=== PATIENT | male | born 1940 | race African-American/Black ===

== ENCOUNTER 2018-03-17 00:07 | Emergency (ER) | payer MEDICARE ==
[~2018-03-17] VITALS: Ht 175.3 cm; Wt 106.6 kg
[~2018-03-17 00:07] MED LIST: ASPI325T8 PO; ATOR40TA59 PO; CARV3.1210 PO; CLOP75TA PO; CYCL10TA2 PO; HYDR-3164 PO; LISI-334 PO; LISI10TA2 PO; NITR0.4T SL; SULF1TAB24 PO
--- NOTE | 2018-03-17 02:07 | PHYS DOC ---
Past Medical History Past Medical History: Hypertension, [place] Additional Past Medical Histor: denies medical history Past Surgical History: Other Additional Past Surgical Histo: R knee scope Alcohol Use: None Drug Use: None Adult General Chief Complaint Chief Complaint: ABDOMINAL PAIN HPI HPI Patient is a 77 year old male who presents with upper abdominal pain and vomiting. This started approximately 1999. Patient describes the pain is achy and crampy. Subjective fever at home. No flu vaccine this year. No trauma. No blood in the emesis. Patient reports that he is feeling a little bit better over time since arriving in the emergency department. Denzer mild to moderate in intensity at this point. [] Review of Systems Review of Systems Constitutional: Denies fever or chills [] Eyes: Denies change in visual acuity, redness, or eye pain [] HENT: Denies nasal congestion or sore throat [] Respiratory: Denies cough or shortness of breath [] Cardiovascular: Chest pain or palpitations[] GI: See history of present illness[] : Denies dysuria or hematuria [] Musculoskeletal: Denies back pain or joint pain [] Integument: Denies rash or skin lesions [] Neurologic: Denies headache, focal weakness or sensory changes [] Endocrine: Denies polyuria or polydipsia [] All other systems were reviewed and found to be within normal limits, except as documented in this note. Current Medications Current Medications Current Medications Medications (Trade) Dose Ordered Sig/Cassius Start Time Stop Time Status Last Admin Dose Admin Hyoscyamine (Anaspaz) 0.125 mg ONCE ONCE 03/17/18 02:30 03/17/18 02:31 DC 03/17/18 03:10 0.125 MG Ondansetron HCl (Zofran) 4 mg 1X ONCE 03/17/18 02:30 03/17/18 02:31 DC 03/17/18 02:24 4 MG Sodium Chloride 1,000 ml @ 1,000 mls/hr 1X ONCE 03/17/18 02:30 03/17/18 03:29 DC 03/17/18 02:25 1,000 MLS/HR Allergies Allergies Allergies Coded Allergies Type Severity Reaction Last Updated Verified No Known Drug Allergies 01/23/16 No Physical Exam Physical Exam Constitutional: Well developed, well nourished, no acute distress, non-toxic appearance. [] HENT: Normocephalic, atraumatic, bilateral external ears normal, oropharynx moist, no oral exudates, nose normal. [] Eyes: PERRLA, EOMI, conjunctiva normal, no discharge. [] Neck: Normal range of motion, no tenderness, supple, no stridor. [] Cardiovascular:Heart rate regular rhythm, no murmur [] Lungs & Thorax: Bilateral breath sounds clear to auscultation [] Abdomen: Bowel sounds normal, soft, mild tenderness in the upper abdomen, sits up without any difficulty, no rebound, no guarding, no rigidity, no masses, no pulsatile masses. [] Skin: Warm, dry, no erythema, no rash. [] Back: No tenderness, no CVA tenderness. [] Extremities: No tenderness, no cyanosis, no clubbing, ROM intact, no edema. [] Neurologic: Alert and oriented X 3, normal motor function, normal sensory function, no focal deficits noted. [] Psychologic: Affect normal, judgement normal, mood normal. [] Current Patient Data Vital Signs Vital Signs Date Time Temp Pulse Resp B/P (MAP) Pulse Ox O2 Delivery O2 Flow Rate FiO2 03/17/18 03:30 74 133/65 (87) 03/17/18 02:30 20 Room Air 03/17/18 00:59 100.2 98 100.2 Lab Values Laboratory Tests Test 03/17/18 02:14 03/17/18 04:08 White Blood Count 9.2 x10^3/uL (4.0-11.0) Red Blood Count 4.55 x10^6/uL (4.30-5.70) Hemoglobin 13.8 g/dL (13.0-17.5) Hematocrit 39.9 % (39.0-53.0) Mean Corpuscular Volume 88 fL (79-100) Mean Corpuscular Hemoglobin 30 pg (25-35) Mean Corpuscular Hemoglobin Concent 35 g/dL (31-37) Red Cell Distribution Width 14.2 % (11.5-14.5) Platelet Count 151 x10^3/uL (140-400) Neutrophils (%) (Auto) 94 % (31-73) H Lymphocytes (%) (Auto) 2 % (24-48) L Monocytes (%) (Auto) 3 % (0-9) Eosinophils (%) (Auto) 0 % (0-3) Basophils (%) (Auto) 0 % (0-3) Neutrophils # (Auto) 8.7 x10^3uL (1.8-7.7) H Lymphocytes # (Auto) 0.2 x10^3/uL (1.0-4.8) L Monocytes # (Auto) 0.3 x10^3/uL (0.0-1.1) Eosinophils # (Auto) 0.0 x10^3/uL (0.0-0.7) Basophils # (Auto) 0.0 x10^3/uL (0.0-0.2) Platelet Estimate Pending Sodium Level 141 mmol/L (136-145) Potassium Level 4.8 mmol/L (3.5-5.1) Chloride Level 103 mmol/L (98-107) Carbon Dioxide Level 24 mmol/L (21-32) Anion Gap 14 (6-14) Blood Urea Nitrogen 19 mg/dL (8-26) Creatinine 1.3 mg/dL (0.7-1.3) Estimated GFR (Cockcroft-Gault) 64.6 BUN/Creatinine Ratio 15 (6-20) Glucose Level 172 mg/dL (70-99) H Calcium Level 9.0 mg/dL (8.5-10.1) Magnesium Level 1.9 mg/dL (1.8-2.4) Total Bilirubin 1.0 mg/dL (0.2-1.0) Aspartate Amino Transferase (AST) 19 U/L (15-37) Alanine Aminotransferase (ALT) 21 U/L (16-63) Alkaline Phosphatase 79 U/L (46-116) Total Protein 8.1 g/dL (6.4-8.2) Albumin 4.3 g/dL (3.4-5.0) Albumin/Globulin Ratio 1.1 (1.0-1.7) Lipase 56 U/L (73-393) L Influenza Type A Antigen Negative (NEGATIVE) Influenza Type B Antigen Negative (NEGATIVE) Urine Collection Type Unknown Urine Color Yellow Urine Clarity Clear Urine pH 5.0 Urine Specific [place] 1.015 Urine Protein Negative mg/dL (NEG-TRACE) Urine Glucose (UA) Negative mg/dL (NEG) Urine Ketones (Stick) Negative mg/dL (NEG) Urine Blood Negative (NEG) Urine Nitrite Negative (NEG) Urine Bilirubin Negative (NEG) Urine Urobilinogen Dipstick 0.2 mg/dL (0.2 mg/dL) Urine Leukocyte Esterase Negative (NEG) Urine RBC 0 /HPF (0-2) Urine WBC 1-4 /HPF (0-4) Urine Squamous Epithelial Cells Occ /LPF Urine Bacteria 0 /HPF (0-FEW) Urine Mucus Mod /LPF Urine Trichomonas Present Laboratory Tests 03/17/18 02:14 Laboratory Tests 03/17/18 02:14 EKG EKG [] Radiology/Procedures Radiology/Procedures [] Course & Med Decision Making Course & Med Decision Making Pertinent Labs and Imaging studies reviewed. (See chart for details) ED course: Patient arrived, was placed in bed, tolerated exam well. Patient was feeling better with IV fluids and antiemetics. He was able to provide a urine sample late in his emergency department stay. After the return of the laboratory findings, these were discussed with him, all questions were answered. Patient was discharged in improved condition. Medical decision making: There is no evidence of obstruction, no evidence of by mouth intolerance. No evidence of significant electrolyte abnormality[] Dragon Disclaimer Dragon Disclaimer This electronic medical record was generated, in whole or in part, using a voice recognition dictation system. Departure Departure Impression: Primary Impression: Nausea and vomiting Additional Impression: Trichomoniasis Disposition: 01 HOME, SELF-CARE Condition: GOOD Referrals: NKECHI SANDOVAL MD (PCP) Follow-up in 2 days Patient Instructions: Nausea and Vomiting, Trichomoniasis Additional Instructions: Drink plenty of fluids, frequent small sips. No fatty foods, no milk, and no pepper for the next 48 hours. For the next 48 hours eat a diet rich in carbohydrates with foods such as bananas, rice, applesauce, and toast. Follow- up with your regular doctor in 2 days. Return to the ER if unable to tolerate liquids or any other concerns. Scripts Metronidazole (FLAGYL) 500 Mg Tablet 2000 MG PO ONCE, #4 TAB Prov: ROSALINDA SALCEDO DO 03/17/18 Ondansetron Hcl (ZOFRAN) 4 Mg Tablet 4 MG PO PRN TID PRN for NAUSEA/VOMITING, #15 nausea/vomiting Prov: ROSALINDA SALCEDO DO 03/17/18 Problem Qualifiers Primary Impression: Nausea and vomiting Vomiting type: unspecified Vomiting Intractability: unspecified Qualified Codes: R11.2 - Nausea with vomiting, unspecified ROSALINDA SALCEDO DO Mar 17, 2018 02:07
[2018-03-17 02:24] LABS: BASO % 0 % (0-3); EOS % 0 % (0-3); HEMATOCRIT 39.9 % (39.0-53.0); HEMOGLOBIN 13.8 g/dL (13.0-17.5); LYMPH # 0.2 x10^3/uL (1.0-4.8); LYMPH % 2 % (24-48); MEAN CORPUSCULAR HEMOGLOBIN 30 pg (25-35); MEAN CORPUSCULAR HGB CONC 35 g/dL (31-37); MEAN CORPUSCULAR VOLUME 88 fL (79-100); MONO # 0.3 x10^3/uL (0.0-1.1); MONO % 3 % (0-9); NEUT # 8.7 x10^3uL (1.8-7.7); NEUT % 94 % (31-73); PLATELET COUNT 151 x10^3/uL (140-400); RED BLOOD COUNT 4.55 x10^6/uL (4.30-5.70); RED CELL DISTRIBUTION WIDTH 14.2 % (11.5-14.5); WHITE BLOOD COUNT 9.2 x10^3/uL (4.0-11.0)
[2018-03-17] MEDS ORDERED: IV NORMAL SALINE 1000ML BAG 1,000 ML IV ONE (02:30)
[2018-03-17] MEDS ORDERED: HYOSCYAMINE 0.125 MG TAB.RAPDIS PO ONE (02:30)
[2018-03-17] MEDS ORDERED: ONDANSETRON PF 4 MG/2 ML VIAL. IV ONE (02:30)
[2018-03-17 02:32] LABS: CREATININE 1.3 mg/dL (0.7-1.3); GFR 64.6; POTASSIUM 4.8 mmol/L (3.5-5.1)
[2018-03-17 02:38] LABS: ALBUMIN 4.3 g/dL (3.4-5.0); ALBUMIN/GLOBULIN RATIO 1.1 (1.0-1.7); MAGNESIUM 1.9 mg/dL (1.8-2.4); TOTAL PROTEIN 8.1 g/dL (6.4-8.2)
[2018-03-17 02:39] LABS: INFLUENZA A PATIENT NEGATIVE (NEGATIVE); INFLUENZA B PATIENT NEGATIVE (NEGATIVE)
[2018-03-17 04:32] LABS: BILIRUBIN,URINE NEGATIVE (NEG); CLARITY,URINE CLEAR; COLOR,URINE YELLOW; NITRITE,URINE NEGATIVE (NEG); PROTEIN,URINE NEGATIVE (NEG-TRACE); UROBILINOGEN,URINE 0.2 mg/dL (0.2 mg/dL)
[2018-03-17 04:45] LABS: BACTERIA,URINE 0 /HPF (0-FEW); RBC,URINE 0 /HPF (0-2); SQUAMOUS EPITHELIAL CELL,UR OCC /LPF; TRICHOMONAS,URINE PRESENT
[2018-03-17] MEDS ORDERED: ONDA4TAB7 PO (04:53)
[2018-03-17] MEDS ORDERED: METR500T PO (04:53)
[2018-03-17 05:03] VITALS: BP 108/57
[2018-03-17 06:29] LABS: % LYMPHS 4 % (24-48); % MONOS 3 % (0-10); % SEGS 93 % (35-66)
[2018-03-17 06:33] LABS: OVALOCYTES OCC; PLT ESTIMATE ADEQUATE (ADEQUATE)
== END 2018-03-17 05:12 | disposition home or self-care (01) ==
LOC: ER 00:07
DX: R11.2 Nausea with vomiting, unspecified (principal); A59.9 Trichomoniasis, unspecified; R10.10 Upper abdominal pain, unspecified; I10 Essential (primary) hypertension; I25.2 Old myocardial infarction
CPT/HCPCS: 36415; 80053; 81001; 83690; 83735; 85007; 85025; 87804; 96361; 96374; 99283; J2405; J7030

== ENCOUNTER 2018-07-04 12:10 | Emergency (ER) | payer MEDICARE ==
[~2018-07-04] VITALS: Ht 175.3 cm; Wt 105.2 kg
[~2018-07-04 12:10] MED LIST changes: +METR500T PO; +ONDA4TAB7 PO
[2018-07-04] MEDS ORDERED: IV NORMAL SALINE 1000ML BAG 1,000 ML IV SCH (12:24)
[2018-07-04 12:39] LABS: BASO % 1 % (0-3); EOS # 0.1 x10^3/uL (0.0-0.7); EOS % 2 % (0-3); HEMATOCRIT 41.5 % (39.0-53.0); HEMOGLOBIN 13.7 g/dL (13.0-17.5); LYMPH % 19 % (24-48); MEAN CORPUSCULAR HEMOGLOBIN 29 pg (25-35); MEAN CORPUSCULAR HGB CONC 33 g/dL (31-37); MEAN CORPUSCULAR VOLUME 88 fL (79-100); MONO # 0.6 x10^3/uL (0.0-1.1); MONO % 12 % (0-9); NEUT # 3.3 x10^3uL (1.8-7.7); NEUT % 67 % (31-73); PLATELET COUNT 163 x10^3/uL (140-400); RED BLOOD COUNT 4.72 x10^6/uL (4.30-5.70); RED CELL DISTRIBUTION WIDTH 14.8 % (11.5-14.5)
--- NOTE | 2018-07-04 12:39 | PHYS DOC ---
Past Medical History Past Medical History: No Pertinent History, Hypertension, [place] Additional Past Medical Histor: denies medical history Past Surgical History: Other Additional Past Surgical Histo: R knee scope Additional Information: Denies smoking Alcohol Use: None Drug Use: None Adult General Chief Complaint Chief Complaint: DIARRHEA HPI HPI Patient is a 78 year old male who presents with complaining of diarrhea. Patient complaining of frequent episodes of nonbloody diarrhea for the last 3 days and states she had more than 10-20 episodes of diarrhea and was not able to sleep last night because of diarrhea. Patient states he was not able to eat solid food and tried to drink plenty of liquids. Patient denies sick contact, food poisoning, abdominal pain, urinary symptoms, nausea and vomiting, fever and chills, history of diarrhea or constipation, history of recent antibiotic use. Review of Systems Review of Systems Constitutional: Denies fever or chills [] Eyes: Denies change in visual acuity, redness, or eye pain [] HENT: Denies nasal congestion or sore throat [] Respiratory: Denies cough or shortness of breath [] Cardiovascular: No additional information not addressed in HPI [] GI: Denies abdominal pain, nausea, vomiting, bloody stools, reports diarrhea [] : Denies dysuria or hematuria [] Musculoskeletal: Denies back pain or joint pain [] Integument: Denies rash or skin lesions [] Neurologic: Denies headache, focal weakness or sensory changes [] Endocrine: Denies polyuria or polydipsia [] All other systems were reviewed and found to be within normal limits, except as documented in this note. Current Medications Current Medications Current Medications Medications (Trade) Dose Ordered Sig/Cassius Start Time Stop Time Status Last Admin Dose Admin Info (CONTRAST GIVEN -- Rx MONITORING) 1 each PRN DAILY PRN 07/04/18 13:15 07/06/18 13:14 Iohexol (Omnipaque 300 Mg/ml) 75 ml 1X ONCE 07/04/18 13:15 07/04/18 13:16 DC 07/04/18 13:16 75 ML Loperamide HCl (Imodium) 4 mg 1X STAT 07/04/18 14:32 07/04/18 14:33 DC 07/04/18 14:40 4 MG Sodium Chloride 1,000 ml @ 1,000 mls/hr Q1H 07/04/18 12:24 07/04/18 13:23 DC 07/04/18 12:30 1,000 MLS/HR Allergies Allergies Allergies Coded Allergies Type Severity Reaction Last Updated Verified No Known Drug Allergies 01/23/16 No Physical Exam Physical Exam Constitutional: Well developed, well nourished, no acute distress, non-toxic appearance. [] HENT: Normocephalic, atraumatic, oropharynx dry. Eyes: PERRLA, EOMI, conjunctiva normal, no discharge. [] Neck: Normal range of motion, no tenderness, supple, no stridor. [] Cardiovascular:Heart rate regular rhythm, no murmur [] Lungs & Thorax: Bilateral breath sounds clear to auscultation [] Abdomen: Bowel sounds normal, soft, no tenderness, no masses, no pulsatile masses. [] Skin: Warm, dry, no erythema, no rash. [] Back: No tenderness, no CVA tenderness. [] Extremities: No tenderness, no cyanosis, no clubbing, ROM intact, no edema. [] Neurologic: Alert and oriented X 3, normal motor function, normal sensory function, no focal deficits noted. [] Psychologic: Affect normal, judgement normal, mood normal. [] Current Patient Data Vital Signs Vital Signs Date Time Temp Pulse Resp B/P (MAP) Pulse Ox O2 Delivery O2 Flow Rate FiO2 07/04/18 12:15 97.7 75 18 141/78 (99) 98 97.7 Lab Values Laboratory Tests Test 07/04/18 12:30 07/04/18 13:45 White Blood Count 5.0 x10^3/uL (4.0-11.0) Red Blood Count 4.72 x10^6/uL (4.30-5.70) Hemoglobin 13.7 g/dL (13.0-17.5) Hematocrit 41.5 % (39.0-53.0) Mean Corpuscular Volume 88 fL (79-100) Mean Corpuscular Hemoglobin 29 pg (25-35) Mean Corpuscular Hemoglobin Concent 33 g/dL (31-37) Red Cell Distribution Width 14.8 % (11.5-14.5) H Platelet Count 163 x10^3/uL (140-400) Neutrophils (%) (Auto) 67 % (31-73) Lymphocytes (%) (Auto) 19 % (24-48) L Monocytes (%) (Auto) 12 % (0-9) H Eosinophils (%) (Auto) 2 % (0-3) Basophils (%) (Auto) 1 % (0-3) Neutrophils # (Auto) 3.3 x10^3uL (1.8-7.7) Lymphocytes # (Auto) 1.0 x10^3/uL (1.0-4.8) Monocytes # (Auto) 0.6 x10^3/uL (0.0-1.1) Eosinophils # (Auto) 0.1 x10^3/uL (0.0-0.7) Basophils # (Auto) 0.0 x10^3/uL (0.0-0.2) Sodium Level 138 mmol/L (136-145) Potassium Level 3.7 mmol/L (3.5-5.1) Chloride Level 101 mmol/L (98-107) Carbon Dioxide Level 20 mmol/L (21-32) L Anion Gap 17 (6-14) H Blood Urea Nitrogen 19 mg/dL (8-26) Creatinine 1.2 mg/dL (0.7-1.3) Estimated GFR (Cockcroft-Gault) 70.7 BUN/Creatinine Ratio 16 (6-20) Glucose Level 96 mg/dL (70-99) Lactic Acid Level 1.1 mmol/L (0.4-2.0) Calcium Level 8.5 mg/dL (8.5-10.1) Total Bilirubin 0.9 mg/dL (0.2-1.0) Aspartate Amino Transferase (AST) 36 U/L (15-37) Alanine Aminotransferase (ALT) 28 U/L (16-63) Alkaline Phosphatase 90 U/L (46-116) Total Protein 8.3 g/dL (6.4-8.2) H Albumin 4.2 g/dL (3.4-5.0) Albumin/Globulin Ratio 1.0 (1.0-1.7) Lipase 71 U/L (73-393) L Urine Collection Type Unknown Urine Color Yellow Urine Clarity Clear Urine pH 5.5 Urine Specific [place] 1.025 Urine Protein Negative mg/dL (NEG-TRACE) Urine Glucose (UA) Negative mg/dL (NEG) Urine Ketones (Stick) Negative mg/dL (NEG) Urine Blood Negative (NEG) Urine Nitrite Negative (NEG) Urine Bilirubin Negative (NEG) Urine Urobilinogen Dipstick 0.2 mg/dL (0.2 mg/dL) Urine Leukocyte Esterase Negative (NEG) Urine RBC 0 /HPF (0-2) Urine WBC 0 /HPF (0-4) Urine Squamous Epithelial Cells Few /LPF Urine Bacteria 0 /HPF (0-FEW) Urine Hyaline Casts Few /HPF Urine Mucus Slight /LPF Laboratory Tests 07/04/18 12:30 Laboratory Tests 07/04/18 12:30 EKG EKG [] Radiology/Procedures Radiology/Procedures [facility] [address] [place] [address] IMAGING REPORT Signed PATIENT: ROYAL OHARA ACCOUNT: [id number] : 1940 LOCATION: ER AGE: 78 SEX: M EXAM STATUS: REG ER ORD. PHYSICIAN: JAYA GUERIN MD REASON: frequent diarrhea PROCEDURE: CT ABD PELV W/ IV CONTRST ONLY CT abdomen and pelvis with contrast. HISTORY: Diarrhea CT scan of the abdomen and pelvis was done using 75 mL Omnipaque 300 contrast. Lung bases are clear. There is no effusion. 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 There is spinal stenosis at L4-5. A liver lesion is not identified. Gallbladder is contracted. Spleen and adrenal glands are normal. Pancreas is normal. There is no mass or hydronephrosis in the kidneys. There is no adenopathy or ascites. There is no free air. There is no bowel obstruction. Appendix is normal. There is mild diverticulosis of the colon without an acute diverticulitis. There is mild wall thickening of the rectum with a distal rectal mass or colitis. There is not other CT evidence of a colitis. Bladder is mildly distended. Prostate is enlarged. IMPRESSION: 1. Normal appendix. 2. Enlarged prostate. 3. Mild wall thickening of rectum specially of the distal rectum, a mass or colitis is possible 4. Spinal stenosis at L4-5. PQRS Compliance Statement: One or more of the following individualized dose reduction techniques were utilized for this examination: 1. Automated exposure control 2. Adjustment of the mA and/or kV according to patient size 3. Use of iterative reconstruction technique Electronically signed by: Samuel Trimble MD (07/04/2018 1:31 PM) [facility] DICTATED and SIGNED BY: SAMUEL TRIMBLE MD DATE: 07/04/18 8087 Course & Med Decision Making Course & Med Decision Making Pertinent Labs and Imaging studies reviewed. (See chart for details) Evaluation of patient in ER showed 78-year-old male patient without history of medical problem presented to ER with complaining of diarrhea for 3 days without abdominal pain, nausea and vomiting. Patient had unremarkable physical exam and labs with a stable vital signs. Patient felt better with treatment of IV fluids. I Patient had unremarkable CT abdomen and pelvis except for colitis and possible wall thickening of:. Patient is a history of colonoscopy. Patient was to have outpatient treatment for his primary care physician. Patient was advised to follow with his primary care physician for referral to GI for colonoscopy. Dragon Disclaimer Dragon Disclaimer This electronic medical record was generated, in whole or in part, using a voice recognition dictation system. Departure Departure Impression: Primary Impression: Colitis Additional Impression: Diarrhea Disposition: 01 HOME, SELF-CARE (at 1444) Condition: IMPROVED Referrals: NKECHI SANDOVAL MD (PCP) Patient Instructions: Colitis, Diarrhea, Diet for Diarrhea, Adult Additional Instructions: Drink plenty of liquids Follow-up with your primary care physician in 2-3 days for GI referral for colonoscopy Return to ER if not getting better Problem Qualifiers JAYA GUERIN MD Jul 04, 2018 12:39
[2018-07-04 12:49] LABS: CALCIUM 8.5 mg/dL (8.5-10.1); CREATININE 1.2 mg/dL (0.7-1.3); GFR 70.7; POTASSIUM 3.7 mmol/L (3.5-5.1)
[2018-07-04 12:55] LABS: ALBUMIN 4.2 g/dL (3.4-5.0); TOTAL BILIRUBIN 0.9 mg/dL (0.2-1.0); TOTAL PROTEIN 8.3 g/dL (6.4-8.2)
[2018-07-04] MEDS ORDERED: CONTRAST GIVEN. MC PRN (13:15)
[2018-07-04] MEDS ORDERED: IOHEXOL 300 MG/ML 100ML VIAL. IV ONE (13:15)
--- NOTE | 2018-07-04 13:34 | RAD ---
CT abdomen and pelvis with contrast. HISTORY: Diarrhea CT scan of the abdomen and pelvis was done using 75 mL Omnipaque 300 contrast. Lung bases are clear. There is no effusion. 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 There is spinal stenosis at L4-5. A liver lesion is not identified. Gallbladder is contracted. Spleen and adrenal glands are normal. Pancreas is normal. There is no mass or hydronephrosis in the kidneys. There is no adenopathy or ascites. There is no free air. There is no bowel obstruction. Appendix is normal. There is mild diverticulosis of the colon without an acute diverticulitis. There is mild wall thickening of the rectum with a distal rectal mass or colitis. There is not other CT evidence of a colitis. Bladder is mildly distended. Prostate is enlarged. IMPRESSION: 1. Normal appendix. 2. Enlarged prostate. 3. Mild wall thickening of rectum specially of the distal rectum, a mass or colitis is possible 4. Spinal stenosis at L4-5. PQRS Compliance Statement: One or more of the following individualized dose reduction techniques were utilized for this examination: 1. Automated exposure control 2. Adjustment of the mA and/or kV according to patient size 3. Use of iterative reconstruction technique Electronically signed by: Samuel Trimble MD (07/04/2018 1:31 PM) [facility]
[2018-07-04 13:58] LABS: BILIRUBIN,URINE NEGATIVE (NEG); CLARITY,URINE CLEAR; COLOR,URINE YELLOW; NITRITE,URINE NEGATIVE (NEG); PH,URINE 5.5; PROTEIN,URINE NEGATIVE (NEG-TRACE); UROBILINOGEN,URINE 0.2 mg/dL (0.2 mg/dL)
[2018-07-04 14:06] LABS: HYALINE CASTS, URINE FEW /HPF; SQUAMOUS EPITHELIAL CELL,UR FEW /LPF
[2018-07-04 14:07] LABS: BACTERIA,URINE 0 /HPF (0-FEW); RBC,URINE 0 /HPF (0-2); WBC,URINE 0 /HPF (0-4)
[2018-07-04] MEDS ORDERED: LOPERAMIDE 2 MG CAPSULE PO STA (14:32)
[2018-07-04 14:45] VITALS: BP 125/76
== END 2018-07-04 14:55 | disposition home or self-care (01) ==
LOC: ER 12:10
DX: K52.9 Noninfective gastroenteritis and colitis, unspecified (principal); R19.7 Diarrhea, unspecified; M48.061 Spinal stenosis, lumbar region without neurogenic claudication; N40.0 Benign prostatic hyperplasia without lower urinary tract symptoms; I10 Essential (primary) hypertension; I25.2 Old myocardial infarction
CPT/HCPCS: 36415; 74177; 80053; 81001; 83605; 83690; 85025; 96360; 99285; J7030; Q9967; 99284

== ENCOUNTER 2020-03-03 11:07 | Emergency (ER) | payer MEDICARE ==
[~2020-03-03] VITALS: Ht 175.3 cm; Wt 105.0 kg
[~2020-03-03 11:07] MED LIST changes: -NITR0.4T SL; +NITR0.4T24 SL
[2020-03-03] MEDS ORDERED: CYCLOBENZAPRINE 10 MG TABLET. PO ONE (11:30)
[2020-03-03] MEDS ORDERED: HYDROcodone/APAP 5/325MG 1 TAB TABLET PO ONE (11:30)
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
--- NOTE | 2020-03-03 13:27 | RAD ---
EXAM: CT head without contrast INDICATION: Left upper extremity numbness COMPARISON: CT head 10/16/2015 TECHNIQUE: Axial CT imaging through the head without intravenous contrast. One or more of the following individualized dose reduction techniques were utilized for this examinat ion: 1. Automated exposure control 2. Adjustment of the mA and/or kV according to patient size 3. Use of iterative reconstruction technique. FINDINGS: There is encephalomalacia in the right frontal lobe from old infarct. No intracranial hemorrhage or a cute infarct. There is sinceconfluent deep white matter hypoattenuation, greater on the right. Ventri cles and sulci are within normal limits for age. Skull and scalp are intact. Visualized paranasal sinuses and mastoid air cells are clear. Globes and orbits are intact. IMPRESSION: 1. No definite acute intracranial abnormality. 2. 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 This is new fro m 2015. 3. Significantly progressed, moderate severe white matter disease, likely related to chronic microvas cular ischemia. 4. If there is persistent concern for acute infarct, recommend MRI to further evaluate Electronically signed by: Sonia Du MD (03/03/2020 1:25 PM) [id number]
[2020-03-03] MEDS ORDERED: HYDR-3164 PO (14:05)
[2020-03-03] MEDS ORDERED: DICL100G54 TP (14:05)
[2020-03-03 14:20] VITALS: BP 164/70
--- NOTE | 2020-03-03 17:10 | EKG ---
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
== END 2020-03-03 14:27 | disposition home or self-care (01) ==
LOC: ER 11:07
DX: M75.102 Unspecified rotator cuff tear or rupture of left shoulder, not specified as traumatic (principal); M47.812 Spondylosis without myelopathy or radiculopathy, cervical region; M19.012 Primary osteoarthritis, left shoulder; M25.512 Pain in left shoulder; M54.2 Cervicalgia; R20.2 Paresthesia of skin; E11.9 Type 2 diabetes mellitus without complications; Z98.890 Other specified postprocedural states
CPT/HCPCS: 70450; 72040; 73030; 93005; 99284

== ENCOUNTER 2020-07-14 08:07 | Emergency (ER) | payer MEDICARE ==
[~2020-07-14] VITALS: Ht 172.7 cm; Wt 102.0 kg
[~2020-07-14 08:07] MED LIST changes: +DICL100G54 TP; -LISI-334 PO; +LISI10TA16 PO; -LISI10TA2 PO; +LISI20TA18 PO
[2020-07-14 08:17] VITALS: BP 185/88
[2020-07-14 08:38] LABS: BILIRUBIN,URINE NEGATIVE (NEG); CLARITY,URINE CLEAR; COLOR,URINE YELLOW; NITRITE,URINE NEGATIVE (NEG); PH,URINE 5.5 (<5.0-8.0); PROTEIN,URINE NEGATIVE (NEG-TRACE); UROBILINOGEN,URINE 0.2 mg/dL (0.2 mg/dL)
[2020-07-14 08:47] LABS: BACTERIA,URINE FEW /HPF (0-FEW); RBC,URINE RARE /HPF (0-2); WBC,URINE OCC /HPF (0-4)
[2020-07-14] MEDS ORDERED: NYST15CR TP (09:12)
--- NOTE | 2020-07-14 09:13 | PHYS DOC ---
Past Medical History Past Medical History: Diabetes-Type II Additional Past Medical Histor: denies medical history Past Surgical History: Other Additional Past Surgical Histo: R knee scope Smoking Status: Never Smoker Alcohol Use: None Drug Use: None Adult General Chief Complaint Chief Complaint: SKIN RASH/ABSCESS [facility] Patient is a 80 year old male presenting the emergency department complaining of new onset of groin irritation. Patient states that over the last 4 days he is noted worsening pain and irritation in the left groin and itching and sometimes it causes bleeding. States it has been increasing in severity since that time. Denies any history of similar symptoms per denies any injury to the area. Denies any fever, chills, nausea or vomiting. Denies any dysuria pyuria Review of Systems Review of Systems Constitutional: Denies fever or chills [] Eyes: Denies change in visual acuity, redness, or eye pain [] HENT: Denies nasal congestion or sore throat [] Respiratory: Denies cough or shortness of breath [] Cardiovascular: No additional information not addressed in HPI [] GI: Denies abdominal pain, nausea, vomiting, bloody stools or diarrhea [] : Denies dysuria or hematuria [] Musculoskeletal: Denies back pain or joint pain [] Integument: Denies rash or skin lesions [] Neurologic: Denies headache, focal weakness or sensory changes [] Endocrine: Denies polyuria or polydipsia [] All other systems were reviewed and found to be within normal limits, except as documented in this note. Allergies Allergies Allergies Coded Allergies Type Severity Reaction Last Updated Verified No Known Drug Allergies 01/23/16 No Physical Exam Physical Exam Constitutional: Well developed, well nourished, no acute distress, non-toxic appearance. [] HENT: Normocephalic, atraumatic, bilateral external ears normal, oropharynx moist, no oral exudates, nose normal. [] Eyes: PERRLA, EOMI, conjunctiva normal, no discharge. [] Neck: Normal range of motion, no tenderness, supple, no stridor. [] Cardiovascular:Heart rate regular rhythm, no murmur [] Lungs & Thorax: Bilateral breath sounds clear to auscultation [] Abdomen: Bowel sounds normal, soft, no tenderness, no masses, no pulsatile masses. [] : Significant raised irritated rash over the left inferior scrotum including the left inner thigh tender but not 5 Skin: Warm, dry, no erythema, no rash. [] Back: No tenderness, no CVA tenderness. [] Extremities: No tenderness, no cyanosis, no clubbing, ROM intact, no edema. [] Neurologic: Alert and oriented X 3, normal motor function, normal sensory function, no focal deficits noted. [] Psychologic: Affect normal, judgement normal, mood normal. [] Current Patient Data Vital Signs Vital Signs Date Time Temp Pulse Resp B/P (MAP) Pulse Ox O2 Delivery O2 Flow Rate FiO2 07/14/20 08:17 98.1 87 20 185/88 (120) 95 Room Air 98.1 Lab Values Laboratory Tests Test 07/14/20 08:29 Urine Collection Type Unknown Urine Color Yellow Urine Clarity Clear Urine pH 5.5 (<5.0-8.0) Urine Specific [place] 1.010 (1.000-1.030) Urine Protein Negative mg/dL (NEG-TRACE) Urine Glucose (UA) Negative mg/dL (NEG) Urine Ketones (Stick) Negative mg/dL (NEG) Urine Blood Negative (NEG) Urine Nitrite Negative (NEG) Urine Bilirubin Negative (NEG) Urine Urobilinogen Dipstick 0.2 mg/dL (0.2 mg/dL) Urine Leukocyte Esterase Negative (NEG) Urine RBC Rare /HPF (0-2) Urine WBC Occ /HPF (0-4) Urine Squamous Epithelial Cells Few /LPF Urine Bacteria Few /HPF (0-FEW) Urine Mucus Slight /LPF EKG EKG [] Radiology/Procedures Radiology/Procedures [] Course & Med Decision Making Course & Med Decision Making Pertinent Labs and Imaging studies reviewed. (See chart for details) 80-year-old male presenting the emergency department new onset of groin irritation. Urine was sent for analysis and was negative. At this time is consistent with a candidal skin infection. Will discharge home with nystatin cream and follow-up Dragon Disclaimer Dragon Disclaimer This electronic medical record was generated, in whole or in part, using a voice recognition dictation system. Departure Departure Impression: Primary Impression: Yeast infection Disposition: HOME / SELF CARE / HOMELESS Condition: GOOD Referrals: NKECHI SANDOVAL MD (PCP) Patient Instructions: Yeast Infection of the Skin, [id number] Additional Instructions: EMERGENCY DEPARTMENT GENERAL DISCHARGE INSTRUCTIONS Thank you for coming to [facility] Emergency Department (ED) today and trusting us with you care. We trust that you had a positive experience in our Emergency Department. If you wish to speak to the department management, you may call the Director at [phone]. YOUR FOLLOW UP INSTRUCTIONS ARE FOLLOWS: 1. Do you have a private Doctor? If you do not have a private doctor, please ask for a resource list of physicians or clinics that may be able to assist you with follow up care. 2. The Emergency Physicain has interpreted your x-rays. The X-Ray specialist will also review them. If there is a change in the findings, you will be notified in 48 hours when at all possible. 3. A lab test or culture has been done, your results will be reviewed and you will be notified if you need a change in treatment. ADDITIONAL INSTRUCTIONS AND INFORMATION: 1. Your care today has been supervised by a physician who is specially trained in emergency care. Many problems require more than one evaluation for a complete diagnosis and treatment. We recommend that you schedule your follow up appointment as recommended to ensure complete treatment of you illness or injury. If you are unable to obtain follow up care and continue to have a problem, or if your condition worsens, we recommend that you return to the ED. 2. We are not able to safely determine your condition over the phone nor are we able to give sound medical advice over the phone. For these safety reasons, if you call for medical advice we will ask you to come to the ED for further evaluation. 3. If you have any questions regarding these discharge instructions please call the ED at [phone]. SAFETY INFORMATION: In the interest of safety, wellness, and injury prevention; we encourage you to wear your sealbelt, if you smoke; quite smoking, and we encourage family to use a protective helmet for bicycling and other sporting events that present an increased risk for head injury. IF YOUR SYMPTOMS WORSEN OR NEW SYMPTOMS DEVELOP, OR YOU HAVE CONCERNS ABOUT YOUR CONDITION; OR IF YOUR CONDITION WORSENS WHILE YOU ARE WAITING FOR YOUR FOLLOW UP APPOINTMENT; EITHER CONTACT YOUR PRIMARY CARE DOCTOR, THE PHYSICIAN WHOSE NAME AND NUMBER YOU WERE GIVEN, OR RETURN TO THE ED IMMEDIATELY. Scripts Nystatin (NYSTATIN) 15 Gm Cream..g. 1 PETAR TP TIS[place]omón, #30 GM Prov: CHARLENE MARIE MD 07/14/20 CHARLENE MARIE MD Jul 14, 2020 09:13
== END 2020-07-14 09:30 | disposition home or self-care (01) ==
LOC: ER 08:07
DX: B37.89 Other sites of candidiasis (principal); R21 Rash and other nonspecific skin eruption; L29.9 Pruritus, unspecified; E11.9 Type 2 diabetes mellitus without complications; Z98.890 Other specified postprocedural states
CPT/HCPCS: 81001; 99283

== ENCOUNTER 2021-02-19 14:04 | Emergency (ER) | payer MEDICARE ==
[~2021-02-19] VITALS: Ht 175.3 cm; Wt 102.0 kg
[~2021-02-19 14:04] MED LIST changes: +CYCL10TA19 PO; -CYCL10TA2 PO; +NYST15CR TP
--- NOTE | 2021-02-19 14:45 | RAD ---
Single AP view of the hand with lateral and oblique views of the right third digit. INDICATION: Blister. FINDINGS: No fracture subluxation dislocation. There is diffuse osteopenia. There is moderate degenerative hooper ge consistent with osteoarthritis. There is mild swelling of the third digit at the distal interphala ngeal joint. Electronically signed by: Manuel Bowens MD (02/19/2021 2:42 PM) [facility]
--- NOTE | 2021-02-19 14:55 | PHYS DOC ---
Past Medical History Past Medical History: Arthritis, Diabetes-Type II Additional Past Medical Histor: denies medical history Past Surgical History: No Surgical History Additional Past Surgical Histo: R knee scope Smoking Status: Never Smoker Alcohol Use: None Drug Use: None General Adult EDM: Chief Complaint: UPPER EXTREMITY SWELLING HPI: HPI: Patient is a 80 year old male with history of diabetes type 2, currently not on medication, he states his blood sugars were under control and he is PCP took him off the diabetes medicine, patient presents to the ED today complaining of a blister on the right middle finger that he noted a week ago. Patient does not recall any injuries. Does not recall biting his right middle finger. Patient denies any pain to the area. Denies any fever, nausea or vomiting. Denies any difficulty with range of motion. States bilateral fingers are contracted from severe osteoarthritis. Review of Systems: Review of Systems: Constitutional: Denies fever or chills. [] Musculoskeletal: Denies back pain or joint pain. [] Integument: Reports blister on the right middle finger Neurologic: Denies headache, focal weakness or sensory changes. [] Psychiatric: Denies depression or anxiety. [] Heart Score: C/O Chest Pain: N/A Risk Factors: Risk Factors: DM, Current or recent (<one month) smoker, HTN, HLP, family history of CAD, obesity. Risk Scores: Score 0 - 3: 2.5% MACE over next 6 weeks - Discharge Home Score 4 - 6: 20.3% MACE over next 6 weeks - Admit for Clinical Observation Score 7 - 10: 72.7% MACE over next 6 weeks - Early Invasive Strategies Allergies: Allergies: Allergies Coded Allergies Type Severity Reaction Last Updated Verified No Known Drug Allergies 01/23/16 No Physical Exam: PE: Constitutional: Well developed, well nourished, no acute distress, non-toxic appearance. [] Skin: Contracted fingers of bilateral upper extremities from osteoarthritis. Small blister noted on the right middle finger distal end radial aspect. No tenderness over the blister. No redness, no warmth, no signs of infection. Patient able to feel all the fingers on the right hand, +2 right radial pulse. Cap refill less than 2 seconds fingers. Back: No tenderness, no CVA tenderness. [] Extremities: No tenderness, no cyanosis, no clubbing, ROM intact, no edema. [] Neurologic: Alert and oriented X 3, normal motor function, normal sensory function, no focal deficits noted. [] Psychologic: Affect normal, judgement normal, mood normal. [] Current Patient Data: Vital Signs: Vital Signs Date Time Temp Pulse Resp B/P (MAP) Pulse Ox O2 Delivery O2 Flow Rate FiO2 02/19/21 14:05 98.4 88 18 141/75 (97) 93 Room Air 98.4 EKG: EKG: [] Radiology/Procedures: Radiology/Procedures: []PROCEDURE: FINGER(S) RIGHT Single AP view of the hand with lateral and oblique views of the right third digit. INDICATION: Blister. FINDINGS: No fracture subluxation dislocation. There is diffuse osteopenia. There is moderate degenerative change consistent with osteoarthritis. There is mild swelling of the third digit at the distal interphalangeal joint. Electronically signed by: Manuel Marroquin MD (02/19/2021 2:42 PM) [facility] DICTATED and SIGNED BY: MANUEL MARROQUIN MD DATE: 02/19/21 [id number] 0 Course & Med Decision Making: Course & Med Decision Making Pertinent Labs and Imaging studies reviewed. (See chart for details) This is a 80-year-old male patient presented to the ED today with right middle finger blister that he noted a week ago, no known injury. Right middle finger x-rays interpreted by radiologist were negative for any acute findings, noted for severe osteoarthritis to the right fingers. Tetanus is up-to-date. Patient had sensation to the finger. There is no signs of infection on the finger. He was given prescription for mupirocin to apply to the area. Provided return precautions. Follow-up with PCP in the course of this week or next week. Dragon Disclaimer: Dragon Disclaimer: This electronic medical record was generated, in whole or in part, using a voice recognition dictation system. Departure Departure Impression: Primary Impression: Blister of finger without infection Qualified Codes: S60.429A - Blister (nonthermal) of unspecified finger, initial encounter Disposition: HOME / SELF CARE / HOMELESS Condition: STABLE Referrals: NKECHI SANDOVAL MD (PCP) follow up this week or next week Patient Instructions: Blisters Additional Instructions: You have a blister to the right middle finger. Keep the area clean and dry. Apply mupirocin to the area twice a day for 10 days. Please follow-up with your primary care doctor in the course of this week or next week. Come back to the ED at any point symptoms worsen Scripts Mupirocin (MUPIROCIN OINTMENT) 22 Gm Oint...g. 1 PETAR TP TID for WOUND CARE, #1 EACH Prov: INGA TAMAYO APRN 02/19/21 INGA TAMAYO APRN Feb 19, 2021 14:55
[2021-02-19 15:14] VITALS: BP 136/69
[2021-02-19] MEDS ORDERED: MUPI22OI2 TP (15:18)
== END 2021-02-19 15:36 | disposition home or self-care (01) ==
LOC: ER 14:04
DX: S60.422A Blister (nonthermal) of right middle finger, initial encounter (principal); E11.9 Type 2 diabetes mellitus without complications; X58.XXXA Exposure to other specified factors, initial encounter; Y93.89 Activity, other specified; Y92.89 Other specified places as the place of occurrence of the external cause; Y99.8 Other external cause status
CPT/HCPCS: 73140; 99283

== ENCOUNTER → 2021-03-18 | Outpatient (CLI) | payer MEDICARE ==
[2021-02-19 15:14] VITALS: BP 136/69
[~2021-03-18] MED LIST changes: +MUPI22OI2 TP; +REGADENOSON 0.4 MG/5 ML DISP.SYRIN. IV ONE
--- NOTE | 2021-03-18 17:08 | RAD ---
MR#: [id number] Date of Study: 03/18/2021 Ordering Physician: FREEMAN POTTS, Referring Physician: TWILA TUCKER Tech: ODALIS Zuñiga, ARRT (R) (N) APPROVED REPORT Test Type: Pharmacological Stress Nurse/Tech: Barby Tatum RN Test Indications: CAD Cardiac History: previous [place] (5 years ago) Medications: See Electronic Medical Record Medical History: See Electronic Medical Record Resting ECG: SR Resting Heart Rate: 86 bpm Resting Blood Pressure: 133/70mmHg Pretest Chest Pain: No chest pain Nurse/Tech Notes S1,S2 and lungs clear to auscultation. Pharm. Details Pharmacologic stress testing was performed using 0.4mg per 5ml of regadenoson given intravenously ove r 7-10 seconds. Stress Symptoms No chest pain or symptoms. POST EXERCISE Reason for Termination: Infusion complete Target HR: No Max HR: 112 bpm 94% of Maximum Predicted HR: 118 bpm Max Blood Pressure: 130/73mmHg Blood Pressure response to exercise: Normal blood pressure response during stress. Heart Rate response to exercise: WNL Chest Pain: No. Arrhythmia: Yes. PVC ST Change: No. INTERPRETATION Stress EKG Conclusion: No evidence of stress-induced EKG changes Imaging Protocol IMAGE PROTOCOL: Rest Tc-99m/stress Tc-99m 1 day Rest: Stress: Viability: Radiopharm.Tc99m [id number] Sestamibi Dose10.2mCi 33mCi Img Date 03/18/2021 03/18/2021 Inj-Img [id number]. 90min. Rest Admin Site:IV - Right HandAdministrator:JAMEL Whittaker Stress Admin Site: IV - Right HandAdministrator: JAMEL Whittaker STRESS DATA End Diast. Vol.188.0mlAv. Heart Rate87.0bpm End Syst. Vol.90.0mlCO Index BSA0.0L/min Myocardial Icxh611.0gEject. Zteuqsix11.0% Stress Rates Pk. Fill Rate1.61EDV/secLVtime Pk. Fill 97.45msec Pk. Empty Rate2.50ESV/secLVtime Pk. Wrvww583.54msec 1/3 Pk. 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 No active ischemia noted. Wall Motion Mild LV dysfunction. EF 50% LV Perf. Quant 17 Seg. SSS18.00 17 Seg. SRS18.00 17 Seg. SDS2.00 Stress Defect Extent (% LAD)21.90Rest Defect Extent (% LAD)21.90Rev. Defect Extent (% LAD)2.50 Stress Defect Extent (% LCX) 61.30Rest Defect Extent (% LCX)53.80Rev. Defect Extent (% LCX)12.50 Stress Defect Extent (% RCA)27.80Rest Defect Extent (% RCA)35.60Rev. Defect Extent (% RCA)0.00 Stress Defect Extent (% SORAIDA)34.80Rest Defect Extent (% SORAIDA)35.40Rev. Defect Extent (% SORAIDA)7.20 Other Information Quality:Fair Risk Assessment: Moderate Risk Conclusion 1. No evidence of stress-induced EKG changes 2. 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 Mild LV dysfunction, EF 50% 4. Moderate risk for future cardiovascular events Signed by : Yoav Gamez, Electronically Approved : 03/18/2021 17:08:03
== END ==
LOC: NM 09:58
PROVIDERS: ATTEND Internal Medicine Cardiovascular Disease
DX: I51.89 Other ill-defined heart diseases (principal); I25.10 Atherosclerotic heart disease of native coronary artery without angina pectoris
CPT/HCPCS: 78452; 93017; A9500; J2785